=== PATIENT | male | born 1960 | race Caucasian/White ===

== ENCOUNTER 2022-03-23 08:22 | Inpatient (IN) ==
[2022-03-23] MEDS ORDERED: HYDROmorphone 0.5 MG/0.5 ML SYRINGE IV ONE (08:32)
--- NOTE | 2022-03-23 08:48 | Emergency Department Note ---
HPI General Chief complaint: Extremity Injury, Lower Stated complaint: right hip pain Time Seen by Provider: 03/23/22 08:48 Source: patient Mode of arrival: ambulatory History of Present Illness HPI Narrative: Narrative: Patient is a 62-year-old male with a past medical history of due to concern for hip fracture. Patient states that he was reaching over his head to play something up high when he fell over. He states that this was a ground-level fall. He states that he had immediate pain to the right hip. He denies pain in any other location. He denies hitting his head. He denies loss of consciousness. He does not take blood thinners or any other medications at this time. Related Data Home Medications Medication Instructions Recorded Confirmed No Known Home Meds 03/23/22 03/23/22 Previous Rx's Medication Instructions Recorded Aspirin 81 mg PO BID #60 tabs 03/25/22 hydrocodone 10 mg-acetaminophen 1 - 2 tab PO Q4HP PRN Per Pain 03/25/22 325 mg tablet Protocol #50 tabs Allergies Allergy/AdvReac Type Severity Reaction Status Date / Time No Known Drug Allergies Allergy Verified 02/10/16 10:11 Review of Systems ROS ROS Narrative: Narrative: Constitutional: Denies fever or weakness Eyes: Denies eye pain or vision change ENT ED: Denies throat pain, hearing loss or rhinorrhea Cardiovascular: Denies chest pain, dyspnea on exertion, orthopnea or edema Respiratory: Denies shortness of breath or cough Gastrointestinal: Denies abdominal pain, nausea, vomiting, diarrhea, constipation, hematochezia or melena Genitourinary: Denies dysuria, frequency, hematuria or incontinence Musculoskeletal: Reports joint pain (Right hip); Denies back pain or myalgia Integumentary: Denies rash or lesions Neurological: Denies headache, weakness, numbness, confusion, abnormal gait or dizziness Psychiatric: Denies anxiety, suicidal thoughts or homicidal thoughts Endocrine: Denies fatigue or polyuria Hematological/Lymphatic: Denies easy bleeding or easy bruising [facility] Narrative Patient History Narrative: Narrative: Medical/Surgical/Family History All Active Problems (Updated 01/14/17 @ 14:32 by [employer] [place]) Hip fracture (Acute) Medical History (Updated 01/14/17 @ 14:32 by [employer] [place]) Hip fracture Partial weight bearing as in toe touch only with crutch assistance. Avoid sitting in a chair bent over. Posture must be erect. Social History Smoking Status: Former smoker Exam Narrative Narrative: Narrative: General General appearance: Present alert and in no apparent distress; Absent anxious or appears intoxicated Head Head: Present atraumatic and normocephalic Eye Eye: Present PERRL and EOMI; Absent scleral icterus ENT ENT: Present mucous membranes moist; Absent nasal congestion Neck Neck: Present full ROM; Absent tenderness Chest Chest: Present normal inspection and symmetric chest wall rise; Absent tenderne ss Respiratory Respiratory: Present normal lung sounds bilaterally; Absent respiratory distress or accessory muscle use Cardiovascular Cardiovascular: Present regular rate, normal rhythm and normal heart sounds Adbominal Abdominal: Present soft and normal bowel sounds; Absent distention or tenderness Extremities Extremities: Present normal inspection, full ROM, tenderness (Right hip) and other (Shortened and rotated RLE) Back Back: Present normal inspection and full ROM; Absent tenderness Neurological Neurological: Present alert and oriented X3; Absent motor sensory deficit Psychiatric Psychiatric: Present normal affect and normal mood Skin Skin: Present warm (WNL), dry and normal color Course Vital Signs Vital signs: Vital Signs Temperature 97.1 F 03/23/22 08:24 Pulse Rate 75 03/23/22 08:24 Respiratory Rate 16 03/23/22 08:24 Blood Pressure 175/108 03/23/22 08:24 Pulse Oximetry (%) 100 03/23/22 08:24 Oxygen Delivery Method 03/23/22 08:24 Temperature 99.1 F H 03/25/22 13:30 Pulse Rate 66 03/25/22 13:30 Respiratory Rate 18 03/25/22 13:30 Blood Pressure 154/72 03/25/22 13:30 Pulse Oximetry (%) 98 03/25/22 13:30 Oxygen Delivery Method 03/25/22 13:30 Oxygen Flow Rate (L/min) 0 03/24/22 16:07 [facility] Narrative Medical decision making narrative: Narrative: Patient is a 62-year-old male who presents to the emergency department due to concern for right hip fracture. Given patient symptoms, tenderness, and shortened/rotated RLE there is concern for hip fracture. XR demonstrates intertrochanteric hip fracture. I have spoken to the orthopedic team who agrees to see and admit patient for hip fracture. Lab Data Result diagrams: 03/23/22 08:51 03/23/22 08:51 Labs: Lab Results 03/23/22 03/23/22 03/23/22 Range/Units 08:51 08:51 08:51 WBC 11.0 (4.5-11.0) K/mcL RBC 4.05 L (4.63-6.08) M/mcL Hgb 12.4 L (13.7-17.5) g/dL Hct 37.9 L (40.1-51.0) % MCV 93.6 (80.0-100.0) fL MCH 30.6 (26.0-34.0) pg MCHC 32.7 (31.0-36.0) g/dL RDW 13.3 (11.5-14.5) % Plt Count 224 (140-440) K/mcL MPV 9.9 (7.4-10.4) fL Immature Gran % (Auto) 0.4 (0.0-0.5) % Neut % (Auto) 66.6 (38.0-78.0) % Lymph % (Auto) 27.0 (15.5-49.0) % Dixon % (Auto) 4.3 (1.0-12.0) % Eos % (Auto) 1.2 (0.0-7.0) % Baso % (Auto) 0.5 (0.0-2.0) % Lymph # (Auto) 2.97 (1.50-4.80) K/mcL Dixon # (Auto) 0.47 (0.10-0.90) K/mcL Eos # (Auto) 0.13 (0.00-0.70) K/mcL Baso # (Auto) 0.06 (0.00-0.30) K/mcL Immature Gran # 0.04 (0.00-0.05) K/mcl Absolute Neutrophils 7.36 (1.80-8.00) K/mcL PT 13.1 (11.9-14.5) sec INR 0.9 (0.9-1.1) APTT (20.0-37.0) sec Sodium 136 (133-145) mmol/L Potassium 3.7 (3.3-5.1) mmol/L Chloride 102 (96-108) mmol/L Carbon Dioxide 27 (22-30) mmol/L Anion Gap 7.0 L (8.0-16.0) BUN 17 (8-23) mg/dL Creatinine 0.7 (0.7-1.2) mg/dL GFR Calculation 100 Glucose 111 H (70-105) mg/dL Calcium 7.9 L (8.6-10.4) mg/dL Total Bilirubin 0.3 (0.1-1.0) mg/dL AST 20 (<40) U/L ALT 14 (<40) U/L Alkaline Phosphatase 89 (39-117) U/L Total Protein 6.1 (5.9-8.4) gm/dL Albumin 4.2 (3.2-5.2) gm/dL Globulin 1.9 L (2.2-3.7) gm/dL Albumin/Globulin Ratio 2.2 (1.0-2.3) 03/23/22 Range/Units 09:32 WBC (4.5-11.0) K/mcL RBC (4.63-6.08) M/mcL Hgb (13.7-17.5) g/dL Hct (40.1-51.0) % MCV (80.0-100.0) fL MCH (26.0-34.0) pg MCHC (31.0-36.0) g/dL RDW (11.5-14.5) % Plt Count (140-440) K/mcL MPV (7.4-10.4) fL Immature Gran % (Auto) (0.0-0.5) % Neut % (Auto) (38.0-78.0) % Lymph % (Auto) (15.5-49.0) % Dixon % (Auto) (1.0-12.0) % Eos % (Auto) (0.0-7.0) % Baso % (Auto) (0.0-2.0) % Lymph # (Auto) (1.50-4.80) K/mcL Dixon # (Auto) (0.10-0.90) K/mcL Eos # (Auto) (0.00-0.70) K/mcL Baso # (Auto) (0.00-0.30) K/mcL Immature Gran # (0.00-0.05) K/mcl Absolute Neutrophils (1.80-8.00) K/mcL PT (11.9-14.5) sec INR (0.9-1.1) APTT 26.0 (20.0-37.0) sec Sodium (133-145) mmol/L Potassium (3.3-5.1) mmol/L Chloride (96-108) mmol/L Carbon Dioxide (22-30) mmol/L Anion Gap (8.0-16.0) BUN (8-23) mg/dL Creatinine (0.7-1.2) mg/dL GFR Calculation Glucose (70-105) mg/dL Calcium (8.6-10.4) mg/dL Total Bilirubin (0.1-1.0) mg/dL AST (<40) U/L ALT (<40) U/L Alkaline Phosphatase (39-117) U/L Total Protein (5.9-8.4) gm/dL Albumin (3.2-5.2) gm/dL Globulin (2.2-3.7) gm/dL Albumin/Globulin Ratio (1.0-2.3) EKG Data EKG #1: EKG attestation: Yes I reviewed and interpreted this EKG. EKG results narrative: Normal sinus rhythm with rate of 62, left axis deviation, T wave flattening in leads III and aVF, CT of 197, QRS of 120, QTc of 481, and absence of ST elevation or depression Discharge Plan Patient/Caregiver Discharge Instructions Pt seen by TERMINAL WORKER/PA only: No Activity: ambulate only with your walker Patient Disposition: Xfer As Inpt ([facility]) Condition: Fair Discharge Date/Time: 03/23/22 11:10
--- NOTE | 2022-03-23 08:56 | XRay Report ---
HISTORY: Fell, right hip pain and deformity FINDINGS: There is an acute intertrochanteric fracture of the right proximal femur. There is varus angulation. On the crosstable lateral view 1.5 cm separation is present. The neck and femoral head are normal. The hip joint is normal in width and alignment, without evidence of arthritis. There is an old fracture of the left greater trochanter with cerclage wire and hook secured to the bone. Degenerative disc disease and arthritis are present at L4-5 and L5-S1. There are several surgical clips in lower pelvis. IMPRESSION: Intertrochanteric fracture of the right hip Interpreted and Authenticated by: Yonis Painting 03/23/22
--- NOTE | 2022-03-23 08:57 | XRay Report ---
HISTORY: Preop to repair fractured right hip FINDINGS: Lungs are clear and well expanded. There is no pneumonia, mass or congestive heart failure. The heart size, mediastinum and bud are normal. IMPRESSION: Normal chest Interpreted and Authenticated by: Yonis Painting 03/23/22
[2022-03-23 09:24] LABS: Basophils # (Auto) 0.06 K/mcL (0.00-0.30); Basophils % (Auto) 0.5 % (0.0-2.0); Eosinophils # (Auto) 0.13 K/mcL (0.00-0.70); Eosinophils % (Auto) 1.2 % (0.0-7.0); Hematocrit 37.9 % (40.1-51.0); Hemoglobin 12.4 g/dL (13.7-17.5); Lymphocytes # (Auto) 2.97 K/mcL (1.50-4.80); Mean Cell Volume 93.6 fL (80.0-100.0); Mean Corpuscular HGB Conc 32.7 g/dL (31.0-36.0); Mean Platelet Volume 9.9 fL (7.4-10.4); Monocytes # (Auto) 0.47 K/mcL (0.10-0.90); Monocytes % (Auto) 4.3 % (1.0-12.0); Neutrophils % (Auto) 66.6 % (38.0-78.0); Platelet Count 224 K/mcL (140-440); RBC 4.05 M/mcL (4.63-6.08); Red Cell Distribution Width 13.3 % (11.5-14.5)
[2022-03-23 09:28] LABS: INR 0.9 (0.9-1.1); Prothrombin Time 13.1 sec (11.9-14.5)
[2022-03-23 09:35] LABS: ALT/SGPT 14 U/L (<40); AST/SGOT 20 U/L (<40); Albumin 4.2 gm/dL (3.2-5.2); Albumin/Globulin Ratio 2.2 (1.0-2.3); Alkaline Phosphatase 89 U/L (39-117); Bilirubin,Total 0.3 mg/dL (0.1-1.0); Blood Urea Nitrogen 17 mg/dL (8-23); Calcium 7.9 mg/dL (8.6-10.4); Carbon Dioxide 27 mmol/L (22-30); Chloride 102 mmol/L (96-108); Globulin 1.9 gm/dL (2.2-3.7); Glomerular Filtration Rate 100; Glucose 111 mg/dL (70-105)
[2022-03-23] MEDS: morphine 2 MG/ML VIAL IV PRN ×4 (11:53→21:14)
[2022-03-23 14:40] LABS: Appearance,Urine Clear (Clear); Bilirubin,Urine Negative (Negative); Color,Urine Yellow; Culture Indicated,Urine No; Glucose,Urine (UA) Negative (Negative); Ketones,Urine Negative (Negative); Leukocyte Esterase,Urine Negative /uL (Negative); Nitrate,Urine Negative (Negative); Protein,Urine Negative (Negative); Specific Gravity,Urine 1.025 (1.000-1.035); Urine Blood Negative ery/mcL (Negative); Urobilinogen,Urine Normal
[2022-03-23] MEDS ORDERED: NICOTINE 21 MG PATCH TOPICAL ONE (18:18)
[2022-03-23] MEDS: METHOCARBAMOL 1,000 MG/10 ML VIAL IV PRN (18:47)
--- NOTE | 2022-03-23 20:21 | EKG ---
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
[2022-03-23] MEDS: 0.9 % SODIUM CHLORIDE 1,000 ML IV SCH (20:34)
--- NOTE | 2022-03-23 20:36 | History and Physical Report ---
DATE OF ADMISSION: 03/23/2022 CHIEF COMPLAINT: Right hip pain. HISTORY OF PRESENT ILLNESS: This is a 62-year-old male, who presented to the emergency department after sustaining a fall earlier today while working at [employer]. He denies any loss of consciousness or syncope prior to the fall, and he denies any other associated injuries, though he does complain of right hip pain, which began immediately after this fall. We were consulted by the emergency department for further treatment options. MEDICATIONS: No known home medications. ALLERGIES: NO KNOWN DRUG ALLERGIES. REVIEW OF SYSTEMS: CONSTITUTIONAL: Denies any fever or weakness. EYES: Denies any eye pain or vision change. ENT: Denies any throat pain, hearing loss, rhinorrhea. CARDIOVASCULAR: Denies any chest pain, shortness of air or dyspnea. RESPIRATORY: Denies any recent cough. NEUROLOGIC: He denies any headache, weakness, numbness, confusion, or dizziness. PSYCHIATRIC: Denies any anxiety or suicidal thoughts. MUSCULOSKELETAL: The patient reports right hip pain. Denies any back pain or any other associated pain. PAST MEDICAL HISTORY: Includes hypertension. FAMILY HISTORY: Noncontributory. SOCIAL HISTORY: The patient admits to being a former smoker, otherwise denies any alcohol or recreational drug use. PHYSICAL EXAMINATION: VITAL SIGNS: Blood pressure 175/108, pulse is 75, respiratory rate is 16, pulse ox 100% on room air, temperature 97.1 degrees Fahrenheit. GENERAL: The patient is alert and oriented, does not appear to be in any apparent distress, does not seem anxious. HEENT: Atraumatic, normocephalic. ENT: Pupils are equal, round, and reactive to light and accommodation. ENT is otherwise unremarkable. NECK: Supple without any tenderness or lymphadenopathy. CHEST: Normal on inspection with symmetric chest wall rise. RESPIRATORY: Lungs are clear to auscultation bilaterally without any wheezes, rhonchi, or rales. CARDIOVASCULAR: Regular rate and rhythm without murmur. ABDOMEN: Soft, nondistended, nontender to palpation. Bowel sounds present in all 4 quadrants. EXTREMITIES/MUSCULOSKELETAL: The right hip is externally rotated on inspection. There is diffuse swelling throughout the hip and both passive and active range of motion of the hip is limited due to tenderness. There is diffuse tenderness to palpation, and right lower extremity is neurovascularly intact. NEUROLOGIC: The patient is alert and oriented times 3, without any focal deficits. PSYCHIATRIC: The patient has normal affect and normal mood. SKIN: Warm and normal in color. IMAGING: Radiographs of the right hip reveal a displaced intertrochanteric hip fracture. Assessment is a displaced right intertrochanteric hip fracture. PLAN: The patient will be admitted and will receive operative treatment tomorrow. We will plan to proceed with an open reduction and internal fixation of the right hip using intramedullary nail. Risks, complications, and possible limitations were discussed with the patient. He would like to proceed with surgery. Dr. Levine was consulted and agrees with this plan. RSM:patty Job ID: [id number] Doc ID: [id number] Morgan Casey PA-C
[2022-03-23] MEDS ORDERED: NICOTINE 21 MG PATCH ONE (20:38)
[2022-03-23] MEDS: HYDROmorphone 2 MG TABLET PO PRN (21:15)
[2022-03-24] MEDS: METHOCARBAMOL 1,000 MG/10 ML VIAL IV PRN ×3 (00:53→19:07)
[2022-03-24] MEDS: morphine 2 MG/ML VIAL IV PRN ×6 (00:53→12:20)
[2022-03-24] MEDS: HYDROmorphone 2 MG TABLET PO PRN ×3 (02:15→23:19)
[2022-03-24] MEDS: 0.9 % SODIUM CHLORIDE 1,000 ML IV SCH ×2 (05:50→16:27)
[2022-03-24] MEDS ORDERED: IPRATROPIUM/ALBUTEROL 3 ML AMPUL.NEB NEB PRN ×2 (07:43→14:35)
[2022-03-24] MEDS: NICOTINE 21 MG PATCH TOPICAL SCH (10:06)
[2022-03-24] MEDS ORDERED: MAGNESIUM SULFATE 2 GM/50 ML BAG IV ONE (13:25)
[2022-03-24] MEDS ORDERED: fentaNYL 100 MCG/2 ML VIAL IV ONE (13:25)
[2022-03-24] MEDS ORDERED: ePHEDrine 50 MG/5 ML SYRINGE (ANEST) IV ONE (13:25)
[2022-03-24] MEDS ORDERED: DEXAMETHASONE 10 MG/ML VIAL ONE (13:25)
[2022-03-24] MEDS ORDERED: ONDANSETRON 4 MG/2 ML VIAL ONE (13:25)
[2022-03-24] MEDS ORDERED: PROPOFOL 200 MG/20 ML VIAL IV ONE (13:25)
[2022-03-24] MEDS ORDERED: LIDOCAINE HCL/PF 100 MG/5 ML SYRINGE IV ONE (13:25)
[2022-03-24] MEDS ORDERED: KETAMINE 50 MG/ML Syringe (ANEST) IV ONE (13:25)
[2022-03-24] MEDS ORDERED: ceFAZolin 2 GM in DEXTROSE 5% IN WATER 50 ML IV SCH (13:30)
[2022-03-24] MEDS ORDERED: LACTATED RINGERS 250 ML IV PRN (14:35)
[2022-03-24] MEDS ORDERED: ACETAMINOPHEN 1,000 MG/100 ML BAG IV ONE (14:35)
[2022-03-24] MEDS ORDERED: diphenhydrAMINE 50 MG/ML VIAL IV PRN (14:35)
[2022-03-24] MEDS ORDERED: MEPERIDINE 25 MG/ML VIAL IV PRN (14:35)
[2022-03-24] MEDS ORDERED: PROMETHAZINE 25 MG/ML VIAL IV PRN (14:35)
[2022-03-24] MEDS ORDERED: NALOXONE HCL 0.4 MG/ML VIAL IV PRN (14:35)
[2022-03-24] MEDS ORDERED: ONDANSETRON 4 MG/2 ML VIAL IV PRN (14:35)
[2022-03-24] MEDS ORDERED: METHOCARBAMOL 1,000 MG/10 ML VIAL IV PRN (14:35)
[2022-03-24] MEDS ORDERED: KETOROLAC 15 MG/ML VIAL IV PRN (14:38)
[2022-03-24] MEDS ORDERED: LACTATED RINGERS 1,000 ML IV SCH (14:45)
[2022-03-24] MEDS ORDERED: ROPIVACAINE HCL/PF 20 ML VIAL IJ ONE (15:30)
[2022-03-24] MEDS ORDERED: BUPIVACAINE PF 0.5% 10 ML VIAL ONE (15:30)
[2022-03-24] MEDS: fentaNYL 100 MCG/2 ML VIAL IV PRN ×4 (15:42→15:57)
--- NOTE | 2022-03-24 18:18 | XRay Report ---
HISTORY: FINDINGS: IMPRESSION: 0.8 minutes of fluoroscopy time was used Interpreted and Authenticated by: Yonis Painting 03/24/22
[2022-03-24] MEDS: ceFAZolin 1 GM VIAL IV SCH (20:28)
[2022-03-25] MEDS: morphine 2 MG/ML VIAL IV PRN ×2 (01:26→06:13)
[2022-03-25] MEDS: METHOCARBAMOL 1,000 MG/10 ML VIAL IV PRN (01:27)
[2022-03-25] MEDS: 0.9 % SODIUM CHLORIDE 1,000 ML IV SCH ×2 (01:32→12:08)
[2022-03-25] MEDS: HYDROmorphone 2 MG TABLET PO PRN (03:25)
[2022-03-25] MEDS: ceFAZolin 1 GM VIAL IV SCH ×2 (05:40→13:25)
--- NOTE | 2022-03-25 06:47 | Brief Operative Note ---
Brief Operative Note Date of procedure: 03/25/22 Pre-op diagnosis: right hip fracture Post-op diagnosis: same Grafts/Implants: Yes Anesthesia: GETA Findings: fracture Complications: none Surgeon: Joe Levine Specimens Removed/Pathology: none sent Condition: stable Disposition: PACU Operative Note Operative Note: Name of the operating practitioner/proceduralist: [Surgeon] Assistants: [observation assistant] Procedure performed: [Procedure] Preoperative diagnosis: [pre-op dx] Postoperative diagnosis: [Post-op dx] Findings: [detail] Specimens removed: [none] Estimated blood loss (cc): [#] Any complications: [details] Detailed account of the findings at surgery: [details] Details of the surgical technique: [details]
--- NOTE | 2022-03-25 06:49 | General Surgery Progress Note ---
SUBJECTIVE Subjective Patient information: Note initiated : 03/25/22 at 6:47 am Service Date, if different from initiated Date: [] Patient: Miguel Ángel Otero 62 y/o M admitted on 03/23/22 for Right Hip Pain. Chief Complaint: [] Principal diagnosis: hip fracture right Interval history: no issues, no complaints Constitutional Vitals: Vital Signs Temp Pulse Resp BP Pulse Ox O2 Del Method O2 Flow Rate 98.3 F 60 16 153/79 96 0 03/25/22 02:56 03/25/22 02:56 03/25/22 02:56 03/25/22 02:56 03/25/22 02:56 03/25/22 02:56 03/24/22 16:07 Period Temp Pulse Resp BP Sys/Hall Pulse Ox O2 Del Method O2 Flow Rate Last 24 Hr 98.0 F-99.0 F 60-84 14-22 125-169/61-84 94-100 Room Air-Room Air 0-6 Intake and Output 03/24/22 03/25/22 03/25/22 21:59 05:59 13:59 Intake Total 2410 200 Output Total 640 425 150 Balance 1770 -225 -150 Weight 173 lb 1.6 oz Intake & Output: Intake & Output 03/24/22 03/25/22 03/25/22 21:59 05:59 13:59 Intake Total 2410 200 Output Total 640 425 150 Balance 1770 -225 -150 Weight 173 lb 1.6 oz Intake: IV 1150 Sodium Chloride 0.9% 1,000 ml @ 1000 100 mls/hr IV .Q10H [place] Rx#: [id number] Ancef 2 gm In Dextrose 5% in 50 Water 50 ml @ 100 mls/hr IV PREOP RY[place] Rx#:[id number] Oral 240 200 IV - Manual Only 1020 Output: Void Amount 490 425 150 Estimated Blood Loss 150 Other: Meal Dinner Percent of Meal Consumed 100% Feeding Ability Independent Urine Appearance Clear Clear Clear Urine Color Bright Yellow Bright Yellow Bright Yellow Extremities Exam Extremities exam: Present neurovascular intact A/P Assessment and plan Plan post hip ORIF mobilize, dc planning Time Spent With Patient Time: Total time spent is greater than 50% in coordination of care (as documented) at patient's floor/unit and/or counseling patient:
--- NOTE | 2022-03-25 06:56 | Discharge Summary ---
Discharge Provider Provider IMPORTANT FOLLOW-UP INFORMATION FOR PCP: Patient information: Note initiated : 03/25/22 at 6:53 am Service Date, if different from initiated Date: [] Patient: Miguel Ángel Otero 62 y/o M admitted on 03/23/22 for Right Hip Pain. Chief Complaint: [] Date of admission: 03/23/22 11:10 Discharge date: 02/25/22 Primary care physician: PCP No Admitting clinician: Joe Levine Consults: 03/23/22 09:35 Consult to Physician [CONS] Stat Comment: Consulting Provider: Joe Levine Reason For Exam: Physician to Consult COURSE Hospital Course Hospital course: uneventful Discharge diagnosis: hip fracture Time Spent with Patient Time attestation: Total time spent providing and/or coordinating discharge services: Time spent: Greater than 30 minutes Physical Examination Exam Clean and dry: Yes Weight bearing status: partial DC Instructions-General Patient Instructions Dressing Care: May shower in 2 days and Aquacel Ag - leave on for 5 days Discharge Plan Patient/Caregiver Discharge Instructions Activity: ambulate only with your walker Diet: Regular Diet Activity Restrictions/Additional Instructions: toe touch weight bearing Prescriptions: No Action No Known Home Meds Follow Up Plan Follow up with: No,PCP [Primary Care Provider] - Patient Disposition: Home, Self-Care Prognosis: Fair Rehab Potential: Good Overall status at discharge: patient is not back to baseline Discharge Orders: Discharge Order (Routine); Ordered 03/25/22 Ordered By: Joe Levine Pending Pending Pending: Resuscitation Status Resuscitate (Full Code) Diet Regular Diet Start WedMar 24 1700 Cefazolin Sodium (Cefazolin 1 Gm Vial) 2 gm IV Q8H RY[place]; Protocol Last Admin: 03/25/22 05:40 Dose: 2 gm Documented By: Admin: 03/24/22 20:28 Dose: 2 gm Documented By: MARTINA Hydromorphone HCl (Hydromorphone 2 Mg Tablet) 4 - 8 mg PO Q4HP PRN; Protocol PRN Reason: Per Pain Protocol Last Admin: 03/25/22 03:25 Dose: 8 mg Documented By: Admin: 03/24/22 23:19 Dose: 4 mg Documented By: Admin: 03/24/22 19:05 Dose: 4 mg Documented By: Admin: 03/24/22 02:15 Dose: 4 mg Documented By: Admin: 03/23/22 21:15 Dose: 4 mg Documented By: MARTINA Sodium Chloride (Sodium Chloride 0.9%) 1,000 mls @ 100 mls/hr IV .Q10H RY[place] Last Admin: 03/25/22 01:32 Dose: 100 mls/hr Documented By: Admin: 03/24/22 16:27 Dose: Not Given Documented By: Infusion: 03/24/22 15:53 Dose: 0 mls/hr Documented By: Admin: 03/24/22 05:50 Dose: 100 mls/hr Documented By: Infusion: 03/24/22 05:50 Dose: 100 mls/hr Documented By: Admin: 03/23/22 20:34 Dose: 100 mls/hr Documented By: MARTINA Methocarbamol (Methocarbamol 1,000 Mg/10 Ml Vial) 750 mg IV Q6HP PRN PRN Reason: Muscle Spasm Last Admin: 03/25/22 01:27 Dose: 750 mg Documented By: Admin: 03/24/22 19:07 Dose: 750 mg Documented By: Admin: 03/24/22 06:58 Dose: 750 mg Documented By: Admin: 03/24/22 00:53 Dose: 750 mg Documented By: Admin: 03/23/22 18:47 Dose: 750 mg Documented By: MARTINA Morphine Sulfate (Morphine 2 Mg/Ml Vial) 2 - 6 mg IV Q1HP PRN; Protocol PRN Reason: Per Pain Protocol Last Admin: 03/25/22 06:13 Dose: 4 mg Documented By: Admin: 03/25/22 01:26 Dose: 4 mg Documented By: Admin: 03/24/22 12:20 Dose: 4 mg Documented By: Admin: 03/24/22 10:45 Dose: 4 mg Documented By: Admin: 03/24/22 08:29 Dose: 4 mg Documented By: Admin: 03/24/22 06:57 Dose: 4 mg Documented By: Admin: 03/24/22 02:23 Dose: 4 mg Documented By: Admin: 03/24/22 00:53 Dose: 4 mg Documented By: Admin: 03/23/22 21:14 Dose: 4 mg Documented By: Admin: 03/23/22 18:45 Dose: 4 mg Documented By: Admin: 03/23/22 16:48 Dose: 2 mg Documented By: Admin: 03/23/22 11:53 Dose: 2 mg Documented By: EVERTON Nicotine (Nicotine 21 Mg Patch) 21 mg TOPICAL DAILY@1000 RY[place] Last Admin: 03/24/22 10:06 Dose: 21 mg Documented By: Shaina Shift Summary 03/25/22 04:52 Shift Summary by Areli Avila Primary Diagnosis: R hip fx after fall @ work Registration Status: 03/23 - M/S IP Date of Surgery : 03/24 - ORIF R hip Pertinent Medical Hx/Issue(s): HTN in past, not taking any home meds besides vitamins. Vital Signs with Trends: VSS on RA. Neuro : A&OX4. Ambulation status : Toe touch only RLE. 1-2PA FWW/GB to chair. Has not been out of bed since surgery, looking forward to PT. CMS checks good R foot. Diet : regular PRN Meds : Robaxin 750mg IV given X2. Dilaudid 4mg tab given X2. Dilaudid 8mg tab given X1. Morphine 4mg IV X1. Lab/Rad (abnormal results): Void /BM: AUO per urinal. No BM. Lines/Tubes: NS @ 100/hr into LFA. Skin / Wound : Dsg to R hip CDI Recommendations/questions for MD: Expected date of discharge: TBD Discharge Plan (needs, disposition, etc): TBD Initialized on 03/25/22 04:52 - END OF NOTE
[2022-03-25] MEDS: HYDROcodone/APAP 10/325MG TABLET PO PRN ×2 (07:31→11:16)
[2022-03-25] MEDS ORDERED: ASPIRIN 81 MG TAB.CHEW CHEWED SCH (09:00)
[2022-03-25] MEDS ORDERED: DOCUSATE SODIUM 100 MG CAPSULE PO SCH (09:00)
[2022-03-25] MEDS: NICOTINE 21 MG PATCH TOPICAL SCH (09:48)
--- NOTE | 2022-03-26 07:36 | Operative Note ---
DATE OF OPERATION: 03/24/2022 PREOPERATIVE DIAGNOSIS: Intertrochanteric hip fracture, right. POSTOPERATIVE DIAGNOSIS: Intertrochanteric hip fracture, right. OPERATION PROPOSED: Right hip reduction and internal fixation using a gamma nail. OPERATION PERFORMED: Same. SURGEON: Joe Levine M.D. SANDBLASTER GLASS: Morgan Casey PA-C. This providers expertise and technical skill were required throughout the case. The PA assisted with preoperative coordination, intraoperative retraction, wound closure, and dressing and splint application, as well as postoperative documentation and care coordination. INDICATIONS: This is a gentleman with a hip fracture, in need of operative stabilization. DESCRIPTION OF PROCEDURE: Informed consent was obtained. The patient was taken to the operating room where he was provided with appropriate anesthetic and prophylactic antibiotics. He was carefully positioned. A best possible reduction was obtained on the fracture table. I then entered the tip of the greater trochanter with a 3.2 mm guidewire. I then made a lateral incision. I dissected down through the iliotibial band through the fascia of the vastus lateralis. I dissected posteriorly along the muscle belly and then up and over the femur. The fracture was exposed. I then debrided fracture hematoma. A bruise type of clamp was used around the fracture and a near anatomic reduction was obtained. I then entered the canal over the guidewire with a reamer. A long guidewire was applied. I sequentially reamed. I impacted a size 13 intramedullary oscar. A proximal hip bolt was applied and then distal interlocking screws were applied. The procedure was tolerated well. No complications. ESTIMATED BLOOD LOSS: 100 mL. GDD:nichlele Job ID: [id number] Doc ID: [id number] Joe Levine MD
== END 2022-03-25 13:30 | disposition home or self-care (01) | DRG 482 ==
LOC: ED 08:22 → MEDSUR 11:10
PROVIDERS: ADMIT Orthopaedic Surgery Orthopaedic Surgery of the Spine; ATTEND Orthopaedic Surgery Orthopaedic Surgery of the Spine